=== PATIENT | male | born 1975 | race Caucasian/White ===

== ENCOUNTER 2016-10-07 06:55 | Day surgery (SDC) | payer MEDICARE ==
[2016-09-20 11:36] VITALS: BMI 22.8
[~2016-10-07 06:55] MED LIST: LACTATED RINGERS 1,000 ML IV SCH; LIDOCAINE 1% 20 ML VIAL (10MG/ML) FOR IV START INTRADERMA PRN
[2016-10-07 07:16] VITALS: TEMP 98.2
[2016-10-07] MEDS ORDERED: LACTATED RINGERS 1,000 ML IV ONE ×2 (07:23)
[2016-10-07] MEDS ORDERED: PROPOFOL 10 MG/ML 20 ML VIAL IV ONE (07:28)
[2016-10-07] MEDS ORDERED: LIDOCAINE 1% INJ 10MG/ML (20 ML MDV) ONE (07:28)
[2016-10-07] MEDS ORDERED: GLYCOPYRROLATE 0.2 MG/ML 2 ML VIAL ONE (07:28)
[2016-10-07 08:20] VITALS: RESP 16
[2016-10-07 08:35] VITALS: BP 126/82; PULSE 93
--- NOTE | 2016-10-07 09:09 | P.OP ---
Date of Procedure: 10/07/16 Preoperative Diagnosis: Rectal bleeding Anemia Postoperative Diagnosis: Same Procedure(s) Performed: EGD and colonoscopy Implants: NA Anesthesia: MAC Surgeon: Jade Nguyen Estimated Blood Loss (ml): 2 Pathology: other Condition: stable Disposition: PACU Indications for Procedure: 41 years old male presents for workup of anemia and rectal bleeding. He mentions bright red bleeding per rectum requiring pressure dressing. Informed consent obtained and patient elected to undergo the procedure including EGD and colonoscopy with possible biopsy. Operative Findings: 1. Normal EGD. GE junction at 40 cm from the incisors. 2. Patulous anal sphincter with circumferential anal mucosal prolapse.Two < 5mm polyps in the cecum and the rectum. Small hemorrhoids. No active bleeding at the time of colonoscopy. Description of Procedure: A timeout was performed to verify the correct patient and correct procedure. Patient was on continuous vitals and pulse ox monitoring throughout the procedure.He was placed in lateral decubitus position and an oral bite block was inserted. A well-lubricated Olympus upper endoscope was passed orally. The esophagus was intubated without difficulty. The vocal cords were visualised and protected at all times. The endoscope was passed beyond the pylorus into the first and second portion of the duodenum. No abnormality was noted in the duodenum mucosa. Two random biopsies were taken from the gastric antrum using cold biopsy forceps. The scope was then retroflexed.No hiatal hernia. No mass, active ulcer or bleeding stigmata noted within the gastric lumen. The GE junction is measured at 40 cm from the incisors . No evidence of reflux esophagitis. The endoscope was gradually withdrawn. No abnormality identified in the esophagus. Patient was then positioned for colonoscopy.Perianal examination did not showed circumferential anal mucosal prolapse. No active bleeding. Digital rectal examination was performed. No masses or gross blood. Very lax anal sphincter. A well-lubricated pediatric Olympus colonoscope was passed per rectally and was gradually advanced beyond the sigmoid colon, splenic flexure, transverse colon, hepatic flexure and cecum. The ileocecal valve was visualized as well as the appendiceal orifice.The colonoscope was gradually withdrawn inspecting all the mucosal surfaces. Bowel prep was good. No masses, AV malformations , no diverticulosis noted. Two <5mm polyps identified in the cecum and the upper rectum which were completely removed using cold biopsy forceps . The scope was gradually withdrawn and retroflexed in the rectum . Grade 1 internal hemorrhoids seen. Total withdrawal time was greater than 6 minutes . Patient tolerated the procedure well and was taken to post anesthesia care unit in stable condition. Final Pathologic Diagnosis A. GASTRIC ANTRUM, BIOPSY: MATURE GASTRIC MUCOSA WITHOUT SIGNIFICANT HISTOPATHOLOGIC CHANGES. B. COLON, CECUM, BIOPSY: TUBULAR ADENOMA. C. RECTUM, BIOPSY: TUBULAR ADENOMA. Recommend repeat colonoscopy in 5 years . Avoid trauma to the rectum Use proctocort suppository BIDx [address] Terry for further work up of iron deficiency anemia . May need capsule endoscopy
== END 2016-10-07 09:43 | disposition home or self-care (01) ==
LOC: ORWHC2ENDO 06:55
PROVIDERS: ATTEND Surgery
DX: D12.0 Benign neoplasm of cecum (principal); D12.8 Benign neoplasm of rectum; K62.2 Anal prolapse; K64.0 First degree hemorrhoids; D64.9 Anemia, unspecified; Z72.0 Tobacco use; F41.9 Anxiety disorder, unspecified; M19.90 Unspecified osteoarthritis, unspecified site; F32.9 Major depressive disorder, single episode, unspecified; Z86.12 Personal history of poliomyelitis; M35.9 Systemic involvement of connective tissue, unspecified; Z79.891 Long term (current) use of opiate analgesic; Z79.899 Other long term (current) drug therapy; Z88.2 Allergy status to sulfonamides
CPT/HCPCS: 88305; 45380; 43239; J2001; J2704; 99153

== ENCOUNTER 2019-01-15 12:59 | Observation (INO) | payer MEDICARE ==
[2019-01-15] MEDS ORDERED: SODIUM CHLORIDE 0.9% 1,000 ML IV STA (13:53)
[2019-01-15] MEDS ORDERED: oxyCODONE-APAP 10-325MG 1 EACH TAB PO STA (13:53)
--- NOTE | 2019-01-15 13:55 | ED ---
General Adult HPI - General Chief complaint: Recheck/Abnormal Lab/Rx Stated complaint: Low hemoglobin Time Seen by Provider: 01/15/19 13:21 Source: patient, RN notes reviewed Mode of arrival: ambulatory Limitations: no limitations - History of Present Illness Initial comments: Patient is a 43-year-old male presented to the emergency room today with a chief complaint of low hemoglobin. Patient states that he did have a follow-up this family doctor yesterday had blood work obtained. He states he was called today and told that was loaded come here to emergency room for blood transfusion. Patient states that his blood transfusions in the past after surgeries. He does admit that he has a history of hemorrhoids. Patient states that he has had some bleeding in that he's noticed it in from rectum after bowel movements. Does admit to painful bowel movements patient states this is consistent with hemorrhoids that is had in the past. Patient does admit that over the last week he has been feeling more fatigued as well. He denies any other complaints or symptoms. Patient denies any recent fever, chills, shortness of breath, chest pain, back pain, abdominal pain, nausea or vomiting, numbness or tingling, headaches or visual changes, or any other complaints. - Related Data Home Medications Medication Instructions Recorded Confirmed ALPRAZolam [Xanax] 0.25 mg PO DAILY PRN 09/20/16 01/15/19 Hizentra 50 mg SQ WE 09/20/16 01/15/19 oxyCODONE-APAP 10-325MG [Percocet 1 tab PO QID PRN 01/15/19 01/15/19 10-325 mg] Allergies Allergy/AdvReac Type Severity Reaction Status Date / Time Sulfa (Sulfonamide Allergy Rash/Hives Verified 01/15/19 13:41 Antibiotics) Review of Systems ROS Statement: Those systems with pertinent positive or pertinent negative responses have been documented in the HPI. ROS Other: All systems not noted in ROS Statement are negative. Past Medical History Past Medical History: Osteoarthritis (OA) Additional Past Medical History / Comment(s): Kaylie's disorder (IMMUNODEFICIENCY) HX OF HEMMORHOIDS, History of Any Multi-Drug Resistant Organisms: None Reported Past Surgical History: Orthopedic Surgery Additional Past Surgical History / Comment(s): left hip X3 PINS, left knee MARGA IN AND SOME REMOVED Past Anesthesia/Blood Transfusion Reactions: No Reported Reaction Past Psychological History: Anxiety Smoking Status: Current every day smoker Past Alcohol Use History: None Reported Past Drug Use History: None Reported General Exam - General Exam Comments Initial Comments: General: The patient is awake and alert, in no distress, and does not appear acutely ill. Eye: There is normal conjunctiva bilaterally. No signs of icterus. Ears, nose, mouth and throat: There are moist mucous membranes and no oral lesions. Neck: The neck is supple, there is no tenderness or JVD. Cardiovascular: Tachycardic. No murmur, rub or gallop is appreciated. Respiratory: Lungs are clear to auscultation, respirations are non-labored, breath sounds are equal. No wheezes, stridor, rales, or rhonchi. Gastrointestinal: Soft, non-distended, non-tender abdomen without masses or organomegaly noted. There is no rebound or guarding present. No CVA tenderness. Bowel sounds are unremarkable. Musculoskeletal: Normal ROM, no tenderness. Strength 5/5. Sensation intact. Pulses equal bilaterally 2+. Neurological: A&O x 3. CN II-XII intact, There are no obvious motor or sensory deficits. Coordination appears grossly intact. Speech is normal. Skin: Skin is warm and dry and no rashes or lesions are noted. Pale. Psychiatric: Cooperative, appropriate mood & affect, normal judgment. Limitations: no limitations Course Vital Signs 01/15/19 01/15/19 13:15 13:43 Temperature 98.5 F Pulse Rate 115 H 110 H Respiratory 18 18 Rate Blood Pressure 152/88 132/91 O2 Sat by Pulse 100 99 Oximetry Medical Decision Making - Medical Decision Making Patient's labs been reviewed does show hemoglobin 6.9. Patient has been ordered 1 unit of blood here in the emergency room to be started. Patient will be admitted to the hospital is aware the plan. Case was discussed with her physician Dr. Cooper with the patient. Patient has seen a GI doctor tomorrow in the past will be consulted. - Lab Data Result diagrams: 01/15/19 13:39 01/15/19 13:39 Lab Results 01/15/19 01/15/19 01/15/19 Range/Units 13:39 13:39 13:39 WBC 10.1 (3.8-10.6) k/uL RBC 4.24 L (4.30-5.90) m/uL Hgb 6.9 L* (13.0-17.5) gm/dL Hct 26.0 L (39.0-53.0) % MCV 61.3 L (80.0-100.0) fL MCH 16.3 L (25.0-35.0) pg MCHC 26.6 L (31.0-37.0) g/dL RDW 19.1 H (11.5-15.5) % Plt Count 613 H (150-450) k/uL Neutrophils % 80 % Lymphocytes % 9 % Monocytes % 6 % Eosinophils % 2 % Basophils % 1 % Neutrophils # 8.0 H (1.3-7.7) k/uL Lymphocytes # 1.0 (1.0-4.8) k/uL Monocytes # 0.6 (0-1.0) k/uL Eosinophils # 0.2 (0-0.7) k/uL Basophils # 0.1 (0-0.2) k/uL Hypochromasia Marked Poikilocytosis Slight Anisocytosis Slight Microcytosis Marked PT 10.0 (9.0-12.0) sec INR 0.9 (<1.2) APTT 24.8 (22.0-30.0) sec Sodium 140 (137-145) mmol/L Potassium 4.3 (3.5-5.1) mmol/L Chloride 107 (98-107) mmol/L Carbon Dioxide 23 (22-30) mmol/L Anion Gap 10 mmol/L BUN 10 (9-20) mg/dL Creatinine 0.35 L (0.66-1.25) mg/dL Est GFR (CKD-EPI)AfAm >90 (>60 ml/min/1.73 sqM) Est GFR (CKD-EPI)NonAf >90 (>60 ml/min/1.73 sqM) Glucose 99 (74-99) mg/dL Calcium 9.4 (8.4-10.2) mg/dL Total Bilirubin 0.3 (0.2-1.3) mg/dL AST 25 (17-59) U/L ALT 34 (21-72) U/L Alkaline Phosphatase 86 (38-126) U/L Total Protein 7.0 (6.3-8.2) g/dL Albumin 4.5 (3.5-5.0) g/dL Disposition Clinical Impression: Symptomatic anemia Disposition: ADMITTED IP TO THIS HOSP Condition: Stable Is patient prescribed a controlled substance at d/c from ED?: No Referrals: Maninder Lee MD [Primary Care Provider] - 1-2 days Time of Disposition: 15:02
[2019-01-15 14:07] LABS: INR 0.9 (<1.2); Partial Thromboplastin Time 24.8 sec (22.0-30.0)
[2019-01-15 14:08] LABS: ALT 34 U/L (21-72); AST 25 U/L (17-59); Albumin 4.5 g/dL (3.5-5.0); Alkaline Phosphatase 86 U/L (38-126); Anion Gap 10 mmol/L; Blood Urea Nitrogen 10 mg/dL (9-20); Calcium 9.4 mg/dL (8.4-10.2); Carbon Dioxide 23 mmol/L (22-30); Chloride 107 mmol/L (98-107); Glucose 99 mg/dL (74-99); Potassium 4.3 mmol/L (3.5-5.1); Sodium 140 mmol/L (137-145); Total Bilirubin 0.3 mg/dL (0.2-1.3)
[2019-01-15 14:13] LABS: Anisocytosis Slight; Basophils # (A) 0.1 k/uL (0-0.2); Basophils % (A) 1 %; Eosinophils # (A) 0.2 k/uL (0-0.7); Eosinophils % (A) 2 %; Hypochromasia Marked; Lymphocytes % (A) 9 %; MCH 16.3 pg (25.0-35.0); MCHC 26.6 g/dL (31.0-37.0); MCV 61.3 fL (80.0-100.0); Microcytosis Marked; Monocytes # (A) 0.6 k/uL (0-1.0); Monocytes % (A) 6 %; Neutrophils % (A) 80 %; Platelet Count 613 k/uL (150-450); Poikilocytosis Slight; RBC 4.24 m/uL (4.30-5.90); RDW 19.1 % (11.5-15.5); WBC 10.1 k/uL (3.8-10.6)
[2019-01-15 14:16] LABS: HGB 6.9 gm/dL (13.0-17.5)
[2019-01-15] MEDS ORDERED: SODIUM CHLORIDE 0.9% 1,000 ML IV ONE (15:02)
[2019-01-15] MEDS ORDERED: ONDANSETRON 4 MG/2 ML VIAL IVP PRN (15:02)
[2019-01-15] MEDS ORDERED: NALOXONE 0.4 MG/ML 1 ML VIAL IV PRN (15:02)
[2019-01-15] MEDS ORDERED: PANTOPRAZOLE 40 MG/10 ML VIAL IVP STA (15:06)
[2019-01-15 17:40] VITALS: BMI 23.4
[2019-01-15] MEDS ORDERED: ALPRAZolam 0.25 MG TAB PO PRN (18:01)
[2019-01-15] MEDS: oxyCODONE-APAP 10-325MG 1 EACH TAB PO PRN (20:31)
[2019-01-15 22:40] LABS: Anisocytosis Slight; HCT 25.9 % (39.0-53.0); HGB 7.2 gm/dL (13.0-17.5); Hypochromasia Marked; MCH 18.4 pg (25.0-35.0); MCHC 27.9 g/dL (31.0-37.0); MCV 66.1 fL (80.0-100.0); Microcytosis Marked; Platelet Count 467 k/uL (150-450); Poikilocytosis Marked; RBC 3.92 m/uL (4.30-5.90); RDW 19.3 % (11.5-15.5)
[2019-01-16 01:16] VITALS: PULSE 91
[2019-01-16] MEDS: oxyCODONE-APAP 10-325MG 1 EACH TAB PO PRN ×2 (06:47→13:21)
[2019-01-16 07:57] LABS: Anisocytosis Slight; Basophils # (A) 0.1 k/uL (0-0.2); Basophils % (A) 0 %; Eosinophils # (A) 0.2 k/uL (0-0.7); Eosinophils % (A) 2 %; HCT 27.6 % (39.0-53.0); HGB 7.3 gm/dL (13.0-17.5); Hypochromasia Marked; Lymphocytes # (A) 0.8 k/uL (1.0-4.8); Lymphocytes % (A) 8 %; MCH 17.6 pg (25.0-35.0); MCHC 26.5 g/dL (31.0-37.0); MCV 66.6 fL (80.0-100.0); Mean Platelet Volume 6.8; Microcytosis Marked; Monocytes # (A) 0.6 k/uL (0-1.0); Monocytes % (A) 5 %; Neutrophils # (A) 8.7 k/uL (1.3-7.7); Neutrophils % (A) 83 %; Platelet Count 454 k/uL (150-450); Poikilocytosis Marked; RBC 4.14 m/uL (4.30-5.90); RDW 19.4 % (11.5-15.5); WBC 10.5 k/uL (3.8-10.6)
[2019-01-16 07:59] LABS: ALT 38 U/L (21-72); AST 19 U/L (17-59); Albumin 3.9 g/dL (3.5-5.0); Alkaline Phosphatase 84 U/L (38-126); Anion Gap 7 mmol/L; Blood Urea Nitrogen 9 mg/dL (9-20); Calcium 9.2 mg/dL (8.4-10.2); Carbon Dioxide 27 mmol/L (22-30); Chloride 108 mmol/L (98-107); Glucose 92 mg/dL (74-99); Potassium 4.5 mmol/L (3.5-5.1); Sodium 142 mmol/L (137-145); Total Bilirubin 0.3 mg/dL (0.2-1.3); Total Protein 6.1 g/dL (6.3-8.2)
[2019-01-16] MEDS ORDERED: IMMUNE GLOBULIN SQ SCH (09:00)
[2019-01-16] MEDS ORDERED: PANTOPRAZOLE 40 MG/10 ML VIAL IVP SCH (09:00)
[2019-01-16 13:22] VITALS: BP 141/73; RESP 16; TEMP 98.8
--- NOTE | 2019-01-16 14:39 | P.CONS ---
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 Collins, polio as a young child after receiving attenuated vaccine in 1974, admitted to hospitals in regards to outpatient chemistries indicating anemia. Patient states that he has felt more weak lately tired and short of breath. Admission hemoglobin 6.9. MCV 61. Received 2 units of blood. Presently hemoglobin is 7.3. Platelet 454-613. Marked hypochromia. INR 0.9. BUN 10. Creatinine 0.3. IgG 585. LFTs within normal limits. Denies overt hematemesis hematochezia or melena. Patient has a history of known hemorrhoid which she states bleeds intermittently only on tissue not in the stool. He has had more bleeding with his hemorrhoid last few weeks than his baseline. [id number] hemorrhoidal preparations do not help. No history of known anemia. Patient states his CBC is checked on yearly basis with his specialists was never told he was anemic. EGD colonoscopy for evaluation of anemia bright blood per rectum in September 2016 reported normal EGD. Patulous anal sphincter a circumferential anal mucosal prolapse small hemorrhoids. Polypectomy cecum and rectum 1. Pathology tubular adenoma. Denies fever chills weight loss. Denies abdominal pain. No recent blood transfusions. No iron supplementation. No aspirin or NSAIDs. No alcohol. Regular diet. Review of Systems Constitutional: Denies fever, chills, sweats, weight gain, or loss. HEENT: Negative for migraines, blurred vision or loss, earaches, drainage, tinnitus, oral mucosal lesions, dysphagia, or odynophagia. Cardiac: Negative for chest pain, arrhythmias, or palpitation. Respiratory: Negative for shortness of breath, hemoptysis, cough, or sputum production. Gastrointestinal: See HPI for pertinent findings. Genitourinary: Negative for hematuria, urgency, frequency, polyuria, dysuria, or penile discharge. Musculoskeletal: Bilateral lower extremity paralysis from childhood polio. Negative for muscle aches, swelling, arthritis, and arthralgias. Neurologic: Negative for stroke or TIA. Endocrine: Negative for thyroid problems. Skin: Negative for rash or itching. Psychiatric: Negative history for depression and anxiety Past Medical History Past Medical History: Osteoarthritis (OA) Additional Past Medical History / Comment(s): Kaylie's disorder (IMMUNODEFI CIENCY) HX OF HEMMORHOIDS, History of Any Multi-Drug Resistant Organisms: None Reported Past Surgical History: Orthopedic Surgery Additional Past Surgical History / Comment(s): left hip X3 PINS, left knee MARGA IN AND SOME REMOVED Past Anesthesia/Blood Transfusion Reactions: No Reported Reaction Past Psychological History: Anxiety Smoking Status: Current every day smoker Past Alcohol Use History: None Reported Additional Past Alcohol Use History / Comment(s): CHEWS ONE TIN OF TOBACCO DAILY, FOR 20 YRS, Past Drug Use History: None Reported Additional Drug Use History / Comment(s): INSTRUCTED TO HOLD FOR 24 HRS PRIOR TO PROCEDURE Medications and Allergies Home Medications Medication Instructions Recorded Confirmed Type ALPRAZolam [Xanax] 0.25 mg PO DAILY PRN 09/20/16 01/15/19 History Hizentra 50 mg SQ WE 09/20/16 01/15/19 History oxyCODONE-APAP 10-325MG [Percocet 1 tab PO QID PRN 01/15/19 01/15/19 History 10-325 mg] Allergies Allergy/AdvReac Type Severity Reaction Status Date / Time Sulfa (Sulfonamide Allergy Rash/Hives Verified 01/15/19 13:41 Antibiotics) Physical Exam Vitals: Vital Signs Temp Pulse Pulse Resp BP BP Pulse Ox 01/16/19 01:16 97.6 F 91 18 134/73 98 01/16/19 00:00 16 01/15/19 20:25 16 01/15/19 18:29 97.5 F L 16 129/81 100 01/15/19 17:40 16 01/15/19 17:24 98.2 F 92 16 130/77 100 01/15/19 17:00 97.0 F L 82 18 128/81 01/15/19 16:30 98.2 F 82 18 125/72 98 01/15/19 16:20 98.2 F 84 18 131/81 01/15/19 16:15 98.1 F 84 18 128/84 100 01/15/19 16:01 97.9 F 82 18 124/79 100 01/15/19 13:43 110 H 18 132/91 99 01/15/19 13:15 98.5 F 115 H 18 152/88 100 Intake and Output 01/15/19 01/16/19 01/16/19 22:59 06:59 14:59 Intake Total 310 1120 450 Balance 310 1120 450 Intake: Intake, IV Titration 800 Amount Sodium Chloride 0.9% 1, 800 000 ml @ 100 mls/hr IV . Q10H ONE Rx#:[id number] Oral 320 450 Blood Product 310 Rc As-1 Unit 310 [id number] Other: # Voids 2 General appearance: The patient is alert, oriented, in no acute distress. HET: Head is normocephalic and atraumatic. Pupils are equal and reactive. Oropharynx is clear without lesions. Neck: Supple without lymphadenopathy. Trachea midline. Heart: S1 S2. Regular rate and rhythm. Lungs: No crackles or wheezes are heard. Abdomen: Soft, nontender, nondistended with bowel sounds. No peritoneal signs. No palpable organomegaly or masses. Extremities: Normal skin color and turgor. No cyanosis, rash, ulceration, clubbing, or edema. Radial and pedal pulses are 2/4 bilaterally. Neurological: Bilateral lower extremity paralysis from polio as a child. Results CBC & Chem 7: 01/16/19 07:15 01/16/19 07:15 Labs: Abnormal Lab Results - Last 24 Hours (Table) 01/15/19 01/15/19 01/15/19 Range/Units 13:39 13:39 13:39 RBC 4.24 L (4.30-5.90) m/uL Hgb 6.9 L* (13.0-17.5) gm/dL Hct 26.0 L (39.0-53.0) % MCV 61.3 L (80.0-100.0) fL MCH 16.3 L (25.0-35.0) pg MCHC 26.6 L (31.0-37.0) g/dL RDW 19.1 H (11.5-15.5) % Plt Count 613 H (150-450) k/uL Neutrophils # 8.0 H (1.3-7.7) k/uL Lymphocytes # (1.0-4.8) k/uL Chloride (98-107) mmol/L Creatinine 0.35 L (0.66-1.25) mg/dL Total Protein (6.3-8.2) g/dL Crossmatch See Detail 01/15/19 01/16/19 01/16/19 Range/Units 22:19 07:15 07:15 RBC 3.92 L 4.14 L (4.30-5.90) m/uL Hgb 7.2 L 7.3 L (13.0-17.5) gm/dL Hct 25.9 L 27.6 L (39.0-53.0) % MCV 66.1 L 66.6 L (80.0-100.0) fL MCH 18.4 L 17.6 L (25.0-35.0) pg MCHC 27.9 L 26.5 L (31.0-37.0) g/dL RDW 19.3 H 19.4 H (11.5-15.5) % Plt Count 467 H 454 H (150-450) k/uL Neutrophils # 8.7 H (1.3-7.7) k/uL Lymphocytes # 0.8 L (1.0-4.8) k/uL Chloride 108 H (98-107) mmol/L Creatinine 0.42 L (0.66-1.25) mg/dL Total Protein 6.1 L (6.3-8.2) g/dL Crossmatch Assessment and Plan (1) Symptomatic anemia Narrative/Plan: 43-year-old gentleman with a history of Kaylie Agammaglobulinemia and polio presents with symptomatic microcytic iron deficient anemia with a history of known bleeding hemorrhoids. EGD colonoscopy 05/14/17 no evidence of peptic ulcer disease polypectomy 2 biopsies consistent with tubular adenoma with findings of hemorrhoids. Occult GI blood blood loss cannot be entirely excluded. Presently no active GI bleeding or abdominal pain. Hemoglobin stable after blood transfusion 7.3. Current Visit: Yes Status: Acute Code(s): D64.9 - ANEMIA, UNSPECIFIED SNOMED Code(s): 102885560 Plan: 1. Dr. Pfeiffer recommended repeat EGD colonoscopy possible capsule endoscopy h owever patient would like to pursue this workup on an outpatient basis. Agreeable for discharge this was communicated with the attending Dr. Cooper. We'll follow up in the next 1-2 weeks for outpatient endoscopy. CBC monitoring in the outpatient setting. Recommend hematology and surgical consult this can be pursued as an outpatient per attending discretion. Thank you for this kind referral and the opportunity to participate in the care of your patient. This consultation was discussed with Dr. Pfeiffer. The impression and plan of care have been directed as dictated.
--- NOTE | 2019-01-16 18:05 | DS ---
DISCHARGE SUMMARY HISTORY PHYSICAL AND DISCHARGE SUMMARY: DATE OF ADMISSION: 01/15/2019 DATE OF DISCHARGE: 01/16/2019 DATE OF SERVICE: 01/16/2019 PRESENTING COMPLAINT: Bleeding per rectum. HISTORY OF PRESENTING COMPLAINT: This is a very pleasant 43-year-old patient who follows with Dr. Lee out of [place]. 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 The patient had a very young age did get a what appears to be live polio vaccine and patient resulted in having polio affecting his right side, affecting his right arm and right leg. The patient does wear a brace for the right leg and also has a brace on the right arm. The patient presented after he was called by his family doctor's office that his hemoglobin was down. Hemoglobin that was repeated here was 6.9. The patient has been having bright red blood per the rectum on and off for a long time, more so recently. The patient felt a little bit tired when he came in. Patient was ordered blood and given a unit of blood. The patient repeat hemoglobin did come up to 7.3. The patient does follow with Dr. Collins out [facility] for Kaylie's. The patient has chronic weakness in the right arm and right leg from the polio. REVIEW OF SYSTEMS: CONSTITUTIONAL: Tired. HEENT: None. RESPIRATORY none. CARDIOVASCULAR: None. GASTROINTESTINAL: As above. No abdominal pain. GENITOURINARY: None. MUSCULOSKELETAL: Weakness on the right side. DERMATOLOGICAL, HEMATOLOGIC, LYMPHATIC: none. PSYCHIATRY none. NEUROLOGICAL: Weakness on the right side. PAST MEDICAL HISTORY: Kaylie's immunogammaglobulinemia, polio affecting the right side, hemorrhoids. PAST SURGICAL HISTORY: Left hip 3 pins, left knee zander. PSYCH HISTORY: Some anxiety. SOCIAL HISTORY: The patient chews a tin of tobacco daily. Lives by himself. No other recreational drugs. FAMILY HISTORY: Reviewed. The patient's brother of the same immunoglobulin deficiency HOME MEDICATIONS: 1. Percocet 10 1 tablet q.i.d. p.r.n. 2. Hizentra 50 mg subcu weekly. 3. Xanax 0.25 p.o. daily p.r.n. ALLERGIES: SULFUR. PHYSICAL EXAMINATION: VITAL SIGNS: Vital signs on presentation: Temperature 98.5, pulse 115, respiratory 18, blood pressure 132/91, pulse ox 99% on room air. GENERAL APPEARANCE: Average built, sitting up, comfortable. EYES: Pupils equal. Conjunctivae pale. HEENT: External appearance of nose and ears normal. Oral cavity normal. NECK: JVD not raised. Mass not palpable. RESPIRATORY: Effort normal. Lungs are clear. CARDIOVASCULAR: First and second sounds normal. No edema. ABDOMEN: Soft, nontender. Liver and spleen not palpable. PSYCHIATRY: Alert, oriented x3. Mood and affect normal. MUSCULOSKELETAL: Right arm is short and contracted. Right leg is short and contracted. INVESTIGATIONS: White count 10.1, hemoglobin 6.9, platelets 613. Repeat this morning 7.3, potassium 4.3. Creatinine normal. ASSESSMENT: 1. Acute blood loss anemia from gastrointestinal blood loss, felt to be most likely internal hemorrhoidal but need to rule out other cause. 2. Reactive thrombocytopenia. 3. Microcytic anemia from above. 4. Chronic nicotine dependence, patient does chew tobacco. 5. Right-sided weakness from prior polio. 6. Kaylie's immunoglobulinemia. 7. Chronic pain for which patient takes [place]. PLAN: Patient was seen by Dr. Pfeiffer's team earlier today and the patient had already eaten. He does not want to wait for EGD and colonoscopy as that will take another 24 hours. The patient is hemodynamically stable. The patient wishes to come back and get the same done. Then patient will need a surgical opinion probably for banding of hemorrhoids that have been bleeding quite a bit. This was discussed with the patient. The patient, otherwise, medically stable to go home. DISCHARGE MEDICATIONS: Same as above. FOLLOWUP: Follow up with Dr. Lee in a week. Follow up with Dr. Panfilo Pfeiffer in 1 week. Follow up with Dr. West Jeffery in 1 week. CBC in 1 week. This is both a history physical and discharge summary. Copy to Dr. Javi Lee [place]. MMODL / IJN: [id number] /
== END 2019-01-16 15:10 | disposition home or self-care (01) ==
LOC: EC 12:59 → 4SSUR 14:19
PROVIDERS: ADMIT Hospitalist; ATTEND Hospitalist
DX: D62 Acute posthemorrhagic anemia (principal); K92.2 Gastrointestinal hemorrhage, unspecified; D69.6 Thrombocytopenia, unspecified; D50.9 Iron deficiency anemia, unspecified; K64.9 Unspecified hemorrhoids; B91 Sequelae of poliomyelitis; R53.1 Weakness; G89.29 Other chronic pain; D80.0 Hereditary hypogammaglobulinemia; M19.90 Unspecified osteoarthritis, unspecified site; F41.9 Anxiety disorder, unspecified; F17.220 Nicotine dependence, chewing tobacco, uncomplicated; Z79.891 Long term (current) use of opiate analgesic; Z79.899 Other long term (current) drug therapy; Z88.2 Allergy status to sulfonamides; Z86.010 Personal history of colon polyps; Z82.49 Family history of ischemic heart disease and other diseases of the circulatory system
CPT/HCPCS: 96376; 96361; 96374; 99284; 36415; 86900; 86901; 80053 ×2; 85025 ×2; 85027; 85610; 85730; 86850; 86920; G0378 ×2; P9016; C9113 ×2

== ENCOUNTER 2024-05-06 18:17 | Emergency (ER) | payer MEDICARE | END 2024-05-07 02:00 | disposition home or self-care (01) | LOC: EC 18:17 | CPT/HCPCS: 99283 ==

== ENCOUNTER 2024-05-21 09:54 | Inpatient (IN) | payer MEDICARE ==
--- NOTE | 2024-05-21 11:22 | ED ---
Psych HPI - General Chief Complaint: Psychiatric Symptoms Stated Complaint: mental health Time Seen by Provider: 05/21/24 10:07 Source: patient, RN notes reviewed Mode of arrival: ambulatory Limitations: no limitations - History of Present Illness Initial Comments: 49-year-old male presents emergency department chief complaint of needing psychiatric evaluation. Patient states he believes he is having issues with his medications he feels slightly manic. Patient states he is on Cymbalta, Xanax he states he is unable to use his marijuana. Patient denies being suicidal homicidal. - Related Data Home Medications Medication Instructions Recorded Confirmed ALPRAZolam [Xanax] 0.25 mg PO DAILY PRN 09/20/16 01/15/19 Hizentra 50 mg SQ WE 09/20/16 01/15/19 oxyCODONE-APAP 10-325MG [Percocet 1 tab PO QID PRN 01/15/19 01/15/19 10-325 mg] Allergies Allergy/AdvReac Type Severity Reaction Status Date / Time Sulfa (Sulfonamide Allergy Rash/Hives Verified 05/21/24 10:05 Antibiotics) Review of Systems ROS Statement: Those systems with pertinent positive or pertinent negative responses have been documented in the HPI. ROS Other: All systems not noted in ROS Statement are negative. Past Medical History Past Medical History: Osteoarthritis (OA) Additional Past Medical History / Comment(s): Kaylie's disorder (IMMUNODEFICIENCY) HX OF HEMMORHOIDS, History of Any Multi-Drug Resistant Organisms: None Reported Past Surgical History: Orthopedic Surgery Additional Past Surgical History / Comment(s): left hip X3 PINS, left knee MARGA IN AND SOME REMOVED Past Anesthesia/Blood Transfusion Reactions: No Reported Reaction Past Psychological History: Anxiety Past Alcohol Use History: None Reported Past Drug Use History: None Reported General Exam Limitations: no limitations General appearance: alert, in no apparent distress Head exam: Present: atraumatic, normocephalic, normal inspection ENT exam: Present: normal exam, mucous membranes moist Neck exam: Present: normal inspection. Absent: tenderness, meningismus, lym phadenopathy Respiratory exam: Present: normal lung sounds bilaterally. Absent: respiratory distress, wheezes, rales, rhonchi, stridor Cardiovascular Exam: Present: regular rate, normal rhythm, normal heart sounds. Absent: systolic murmur, diastolic murmur, rubs, gallop, clicks GI/Abdominal exam: Present: soft, normal bowel sounds. Absent: distended, tenderness, guarding, rebound, rigid Neurological exam: Present: alert, oriented X3 Psychiatric exam: Present: anxious Course Vital Signs 05/21/24 10:02 Temperature 98.1 F Pulse Rate 94 Respiratory 18 Rate Blood Pressure 159/106 O2 Sat by Pulse 98 Oximetry Medical Decision Making - Medical Decision Making Was pt. sent in by a medical professional or institution (, PA, LIFE SCIENTIST, urgent care, hospital, or [place] [facility] [place] facility...) When possible be specific @ -No Did you speak to anyone other than the patient for history (EMS, parent, family, police, friend...)? What history was obtained from this source @ -No Did you review nursing and triage notes (agree or disagree)? Why? @ -I reviewed and agree with nursing and triage notes Were old charts reviewed (outside hosp., previous admission, EMS record, old EKG, old radiological studies, urgent care reports/EKG's, [place] [facility] facility records)? Report findings @ -No old charts were reviewed Differential Diagnosis (chest pain, altered mental status, abdominal pain women, abdominal pain men, vaginal bleeding, weakness, fever, dyspnea, syncope, headache, dizziness, GI bleed, back pain, seizure, CVA, palpatations, mental health, musculoskeletal)? @ -Differential Mental Health Depression, anxiety, bipolar, psychosis, schizophrenia, borderline personality, situational depression, adjustment disorder, behavioral disorder, brain tumor, malingering, substance abuse, encephalopathy, medication reaction, dementia, hypothyroidism, degenerative neurologic disorder, lupus.... This is not meant to be all-inclusive list EKG interpreted by me (3pts min.). @ -None X-rays interpreted by me (1pt min.). @ -None done CT interpreted by me (1pt min.). @ -None done U/S interpreted by me (1pt. min.). @ -None done What testing was considered but not performed or refused? (CT, X-rays, U/S, labs)? Why? @ -None What meds were considered but not given or refused? Why? @ -None Did you discuss the management of the patient with other professionals (professionals i.e. , PA, LIFE SCIENTIST, lab, RT, psych nurse, medical social worker, section hand helper, teacher, sailing officer, case liner)? Give summary @ -[EPS evaluated the patient discussed case with psychiatrist recommends inpatient treatment Was smoking cessation discussed for >3mins.? @ -No Was critical care preformed (if so, how long)? @ -No Were there social determinants of health that impacted care today? How? (Homelessness, low income, unemployed, alcoholism, drug addiction, transportation, low edu. Level, literacy, decrease access to med. care, [facility], rehab)? @ -No Was there de-escalation of care discussed even if they declined (Discuss DNR or withdrawal of care, Hospice)? DNR status @ -No What co-morbidities impacted this encounter? (DM, HTN, Smoking, COPD, CAD, Cancer, CVA, ARF, Chemo, Hep., AIDS, mental health diagnosis, sleep apnea, morbid obesity)? @ -None Was patient admitted / discharged? Hospital course, mention meds given and route, prescriptions, significant lab abnormalities, going to OR and other pertinent info. @ -Admitted to 3 W. Undiagnosed new problem with uncertain prognosis? @ -No Drug Therapy requiring intensive monitoring for toxicity (Heparin, Nitro, Insulin, Cardizem)? @ -No Were any procedures done? @ -No Diagnosis/symptom? @ -Acute psychosis Acute, or Chronic, or Acute on Chronic? @ -Acute Uncomplicated (without systemic symptoms) or Complicated (systemic symptoms)? @ -Complicated Side effects of treatment? @ -No Exacerbation, Progression, or Severe Exacerbation? @ -No Poses a threat to life or bodily function? How? (Chest pain, USA, SD, pneumonia, PE, COPD, DKA, ARF, appy, cholecystitis, CVA, Diverticulitis, Homicidal, Suicidal, threat to staff... and all critical care pts) @ -No Disposition Clinical Impression: Acute psychosis Disposition: TRANSFER TO PSYCH HOSP/UNIT Condition: Fair Referrals: Lacey Nuñez MD [Primary Care Provider] - 1-2 days Time of Disposition: 15:49
[2024-05-21 18:40] LABS: Amphetamine Screen,Urine Not Detected (NotDetected); Barbiturate Screen,Urine Not Detected (NotDetected); Benzodiazepines Screen,Urine Not Detected (NotDetected); Cocaine Screen,Urine Not Detected (NotDetected); Methadone Screen, Urine Not Detected (NotDetected); Opiate Screen,Urine Detected (NotDetected); Oxycodone Screen, Urine Detected (NotDetected); Phencyclidine Screen,Urine Not Detected (NotDetected); Tricyclic Antidepressant,Urine Not Detected (NotDetected); Urn Cannabinoid Scrn Detected (NotDetected)
[2024-05-21] MEDS: NICOTINE 21MG/24HR PATCH TRANSDERM STA (19:22)
[2024-05-21 20:31] LABS: Basophils % (A) 1 %; Eosinophils # (A) 0.4 k/uL (0-0.7); Eosinophils % (A) 5 %; HCT 42.7 % (39.0-53.0); HGB 13.5 gm/dL (13.0-17.5); Lymphocytes # (A) 1.1 k/uL (1.0-4.8); Lymphocytes % (A) 14 %; MCH 30.5 pg (25.0-35.0); MCHC 31.6 g/dL (31.0-37.0); MCV 96.5 fL (80.0-100.0); Mean Platelet Volume 7.6; Monocytes # (A) 0.6 k/uL (0-1.0); Monocytes % (A) 7 %; Neutrophils # (A) 5.9 k/uL (1.3-7.7); Neutrophils % (A) 73 %; Platelet Count 355 k/uL (150-450); RBC 4.43 m/uL (4.30-5.90); RDW 14.9 % (11.5-15.5); WBC 8.1 k/uL (3.8-10.6)
[2024-05-21 20:43] LABS: ALT 23 U/L (4-49); AST 35 U/L (17-59); African American GFR (CKD) >90 (>60 ml/min/1.73 sqM); Albumin 3.9 g/dL (3.5-5.0); Alkaline Phosphatase 95 U/L (38-126); Anion Gap 4 mmol/L; Blood Urea Nitrogen 9 mg/dL (9-20); Calcium 9.2 mg/dL (8.4-10.2); Carbon Dioxide 32 mmol/L (22-30); Chloride 103 mmol/L (98-107); Glucose 100 mg/dL (74-99); Non-African American GFR(CKD) >90 (>60 ml/min/1.73 sqM); Potassium 3.8 mmol/L (3.5-5.1); Sodium 139 mmol/L (137-145); Total Bilirubin 0.4 mg/dL (0.2-1.3); Total Protein 6.5 g/dL (6.3-8.2)
[2024-05-21] MEDS ORDERED: HALOPERIDOL LACTATE 5 MG/ML 1 ML VIAL IM PRN (20:56)
[2024-05-21] MEDS ORDERED: LORazepam 2 MG/ML INJ IM PRN (20:56)
[2024-05-21] MEDS ORDERED: ACETAMINOPHEN TAB 325 MG TAB PO PRN (20:56)
[2024-05-21 21:42] LABS: Appearance,Urine Clear (Clear); Bilirubin,Urine Negative (Negative); Blood,Urine Negative (Negative); Color,Urine Colorless; Glucose,Urine (UA) Negative (Negative); Ketones,Urine Negative (Negative); Leukocyte Esterase,Urine Negative (Negative); Nitrite,Urine Negative (Negative); Protein,Urine Negative (Negative); Specific Gravity,Urine 1.006 (1.001-1.035); Urobilinogen,Urine <2.0 mg/dL (<2.0)
[2024-05-21] MEDS: PREGABALIN 75 MG CAP PO SCH (22:43)
[2024-05-21] MEDS: HYDROcodone/APAP 10-325MG 1 EACH TAB PO PRN (22:48)
[2024-05-21] MEDS: atenoloL 50 MG TAB PO SCH (23:02)
[2024-05-21] MEDS: LORazepam 1 MG TAB PO PRN (23:18)
[2024-05-22] MEDS ORDERED: MAG HYDROX/AL HYDROX/SIMETH 355 ML BOTTLE PO PRN
[2024-05-22] MEDS ORDERED: HYDROcodone/APAP 10-325MG 1 EACH TAB PO PRN
[2024-05-22] MEDS: NICOTINE 14MG/24HR PATCH TRANSDERM SCH (03:05)
[2024-05-22] MEDS ORDERED: MAGNESIUM HYDROXIDE 2,400 MG/30 ML CUP PO PRN (09:00)
[2024-05-22] MEDS: atenoloL 50 MG TAB PO SCH (09:36)
[2024-05-22] MEDS: DULoxetine HCL 60 MG CAPSULE.DR PO SCH (09:36)
[2024-05-22 09:38] LABS: Chol/HDL Ratio 2.71 Ratio
[2024-05-22] MEDS: haloperidoL 5 MG TAB PO PRN (10:35)
[2024-05-22] MEDS: SYMBICORT 160-4.5 MCG INHALER (MHU) INHALATION SCH (10:38)
[2024-05-22] MEDS: SYMBICORT 80-4.5 MCG INHALER INHALATION SCH (10:51)
[2024-05-22 11:57] VITALS: BMI 18.7
[2024-05-22] MEDS: risperiDONE 0.5 MG TAB PO SCH (21:30)
[2024-05-22] MEDS ORDERED: SYMBICORT 80-4.5 MCG INHALER INHALATION ONE (23:00)
[2024-05-22] MEDS ORDERED: LORazepam 1 MG TAB ONE (23:34)
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
[2024-05-23] MEDS: ALBUTEROL INHALER 60 PUFF/8 GM INHALER (MHU) INHALATION PRN (09:15)
--- NOTE | 2024-05-23 14:32 | P.HP ---
Psychiatric H&P - . H&P Date: 05/22/24 History & Physical: Allergies Allergy/AdvReac Type Severity Reaction Status Date / Time Sulfa (Sulfonamide Allergy Rash/Hives Verified 05/21/24 17:04 Antibiotics) Vital Signs Temp 98.0 F 05/21/24 22:42 Pulse 130 H 05/23/24 05:44 Resp 18 05/21/24 22:42 BP 142/94 05/23/24 05:44 Pulse Ox 98 05/21/24 22:42 FiO2 Intake & Output 05/22/24 05/23/24 05/23/24 18:59 06:59 18:59 Weight 54.176 kg Laboratory Last Values WBC 8.1 k/uL (3.8-10.6) 05/21/24 20:09 RBC 4.43 m/uL (4.30-5.90) 05/21/24 20:09 Hgb 13.5 gm/dL (13.0-17.5) 05/21/24 20:09 Hct 42.7 % (39.0-53.0) 05/21/24 20:09 MCV 96.5 fL (80.0-100.0) 05/21/24 20:09 MCH 30.5 pg (25.0-35.0) 05/21/24 20:09 MCHC 31.6 g/dL (31.0-37.0) 05/21/24 20:09 RDW 14.9 % (11.5-15.5) 05/21/24 20:09 Plt Count 355 k/uL (150-450) 05/21/24 20:09 MPV 7.6 05/21/24 20:09 Neutrophils % 73 % 05/21/24 20:09 Lymphocytes % 14 % 05/21/24 20:09 Monocytes % 7 % 05/21/24 20:09 Eosinophils % 5 % 05/21/24 20:09 Basophils % 1 % 05/21/24 20:09 Neutrophils # 5.9 k/uL (1.3-7.7) 05/21/24 20:09 Lymphocytes # 1.1 k/uL (1.0-4.8) 05/21/24 20:09 Monocytes # 0.6 k/uL (0-1.0) 05/21/24 20:09 Eosinophils # 0.4 k/uL (0-0.7) 05/21/24 20:09 Basophils # 0.0 k/uL (0-0.2) 05/21/24 20:09 Sodium 139 mmol/L (137-145) 05/21/24 20:09 Potassium 3.8 mmol/L (3.5-5.1) 05/21/24 20:09 Chloride 103 mmol/L (98-107) 05/21/24 20:09 Carbon Dioxide 32 mmol/L (22-30) H 05/21/24 20:09 Anion Gap 4 mmol/L 05/21/24 20:09 BUN 9 mg/dL (9-20) 05/21/24 20:09 Creatinine 0.73 mg/dL (0.66-1.25) 05/21/24 20:09 Est GFR (CKD-EPI)AfAm >90 (>60 ml/min/1.73 sqM) 05/21/24 20:09 Est GFR (CKD-EPI)NonAf >90 (>60 ml/min/1.73 sqM) 05/21/24 20:09 Glucose 100 mg/dL (74-99) H 05/21/24 20:[address] Glu mg/dL 117 mg/dL 05/21/24 20:09 Hemoglobin A1c 5.7 % (<=6.0) 05/21/24 20:09 Calcium 9.2 mg/dL (8.4-10.2) 05/21/24 20:09 Total Bilirubin 0.4 mg/dL (0.2-1.3) 05/21/24 20:09 AST 35 U/L (17-59) 05/21/24 20:09 ALT 23 U/L (4-49) 05/21/24 20:09 Alkaline Phosphatase 95 U/L (38-126) 05/21/24 20:09 Total Protein 6.5 g/dL (6.3-8.2) 05/21/24 20:09 Albumin 3.9 g/dL (3.5-5.0) 05/21/24 20:09 Triglycerides 103.00 mg/dL (0.00-149.00) 05/21/24 20:09 Cholesterol 169.00 mg/dL (0.00-200.00) 05/21/24 20:09 LDL Cholesterol, Calc 86.0 mg/dL (0.0-131.0) 05/21/24 20:09 VLDL Cholesterol, Calc 20.60 mg/dL (5.00-40.00) 05/21/24 20:09 HDL Cholesterol 62.40 mg/dL (40.00-60.00) H 05/21/24 20:09 Cholesterol/HDL Ratio 2.71 Ratio 05/21/24 20:09 TSH 0.628 UIU/ML (0.350-5.500) 05/21/24 20:09 Urine Color Colorless 05/21/24 20:56 Urine Appearance Clear (Clear) 05/21/24 20:56 Urine pH 6.0 (5.0-8.0) 05/21/24 20:56 Ur Specific [place] 1.006 (1.001-1.035) 05/21/24 20:56 Urine Protein Negative (Negative) 05/21/24 20:56 Urine Glucose (UA) Negative (Negative) 05/21/24 20:56 Urine Ketones Negative (Negative) 05/21/24 20:56 Urine Blood Negative (Negative) 05/21/24 20:56 Urine Nitrite Negative (Negative) 05/21/24 20:56 Urine Bilirubin Negative (Negative) 05/21/24 20:56 Urine Urobilinogen <2.0 mg/dL (<2.0) 05/21/24 20:56 Ur Leukocyte Esterase Negative (Negative) 05/21/24 20:56 Urine Opiates Screen Detected (NotDetected) H 05/21/24 16:19 Ur Oxycodone Screen Detected (NotDetected) H 05/21/24 16:19 Urine Methadone Screen Not Detected (NotDetected) 05/21/24 16:19 Ur Barbiturates Screen Not Detected (NotDetected) 05/21/24 16:19 U Tricyclic Antidepress Not Detected (NotDetected) 05/21/24 16:19 Ur Phencyclidine Scrn Not Detected (NotDetected) 05/21/24 16:19 Ur Amphetamines Screen Not Detected (NotDetected) 05/21/24 16:19 U Methamphetamines Scrn Not Detected (NotDetected) 05/21/24 16:19 U Benzodiazepines Scrn Not Detected (NotDetected) 05/21/24 16:19 Urine Cocaine Screen Not Detected (NotDetected) 05/21/24 16:19 U Marijuana (THC) Screen Detected (NotDetected) H 05/21/24 16:19 SARS-CoV-2 (PCR) Not Detected (Not Detectd) 05/21/24 17:00 05/22/24 14:31 Psychiatric Evaluation Identifying Data: Mr. Nguyen is 49 years old, single, wm, who lives in [place], [place] in a house by himself. Chief Complaint: Lot of stress for 6 weeks. History of Psychiatric Illness- The patient noted that he came to the hospital because his family and friends asked him. The patient noted he was noted to be aggressive by expressing anger, irritability, snapping, fluctuating sleep, paranoia, hypervigilant, feared being shot, checking vehicle for rust in the bottom because that means he is being followed, neglecting personal care. He denied being worthless, hopeless suicidal or homicidal. He also believed that [place] people were going to hurt his family. The patient noted that he has never had this kind of experience in the past. The patient has never been hospitalized in the past for psychiatric reason. He has no h/o SI or HI in the past. The patient has last contact with a psychiatrist in 2022. He is taking Cymbalta and Xanax prescribed to him by his PCP. He has been compliant with his medications. Past Psychiatric History: The patient has been under psychiatric treatment since age 7. He has been under psychiatric treatment off and on since then. Past Medication History: The patient does not know. Leading questions: The patient denied Depression and Anxiety. Denied SI or HI. Admitted to paranoia. Denied hearing voices or seeing things. Drugs and alcohol history: The patient drank heavy between the ages of 20 to 35. He used cocaine between the ages of 25 to 45. He had severe opioid addiction. Current consumption is not known. He has experimented with LSD and mushrooms. He Marijuana abuse. Past Medical history: Brutons disease, Polio s/p multiple corrective surgeries, recurrent hemorrhoids. Family History of Psychiatric Disorder: The patients paternal cousin committed suicide. Social History and Family History: The patient was born and raised in [place], [place]. He grew-up with two siblings. He finished HS. 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 Allergies: Sulfa Objective: MSE: Alert and attentive. Orientation times three Dressed and Groomed: Appropriately. Pleasant and cooperative. Later in the session, he became irritable and verbally aggressive. Psychomotor Activity: Increased. Speech: Normal in tone, quality, and quantity. Mood: Angry and irritable Affect: Intense and agitated. SI or HI: None. Perceptual disturbance: None. Thought Content: The patient has mild paranoid delusions. No other delusional thinking noted. Thought Process: Normal. Cognition: Intact Judgment and Insight: Poor. AIMS: Normal Labs: Available labs reviewed. Diagnosis: Major Depressive disorder, severe with paranoia Plan and Recommendations: Continue current Medications. Monitor MS and side effects of medications and a djust medications accordingly. Provide supportive psychotherapy and psychoeducation. The patient provided psychoeducation. Te patient provided with substance abuse counselling and advised to attend AA/NA Smoke cessation therapy. The patient to attend [facility]. EKG, Medication Consent with explanation of risk/benefits and side effects: Explained and obtained.
--- NOTE | 2024-05-23 14:41 | P.PN ---
Progress Note - Text Progress Note Date: 05/23/24 Follow-up Mediation Review Chief Complaint: I am better than yesterday. Subjective: The patient noted being better and stated that the medications are helping him. He reported no side effects. He wanted me to get ventilation in the office and get rid of the mold. He noted that he has a friend, who he can ask to improve the office. He talked about different subjects in a very rapid manner. It was very hard to understand what he was talking about. He reported no side effects. He is compliant with medications. The patient has been attending the groups. The participation is good. The interaction with staff and peers is good. The patient is compliant with treatment recommendations. Leading questions: The patient admitted to Depression and Anxiety. Denied SI or HI. Admitted to paranoia. He a/v hallucinations. Sleep and Appetite: Fair. Change in family/ living/job/financial/daily routine: No change. Change in medical condition: No change. Change in medications: Increased Risperdal to 1 mg hs. Side effects from Medications: None. Allergies: No change. Objective- MSE: Alert and attentive. Orientation times three. Dressed and Groomed: Appropriately. Pleasant and cooperative. Psychomotor Activity: Increased. Speech: Normal in tone, quality, hyperverbal, rapid. Mood: I am good. Affect: Intense, anxious, labile SI or HI: None. Perceptual disturbance: None. Thought Content: Paranoid and grandiose delusions noted. No other delusional thinking noted. Thought Process: Tangential, flight of ideas, loos associations, push of speech. Cognition: Intact Judgment and Insight: Poor AIMS: Normal. Labs: Labs reviewed Diagnosis: No change. Plan and Recommendations: Continue current Medications. Monitor MS and side effects of medications and adjust medications accordingly. Provide supportive psychotherapy. The patient provided psychoeducation and advised The patient provided Substance abuse counseling. Smoke cessation therapy. The patient to attend garcia activities. Medication Consent with explanation of risk/benefits and side effects: Explained and obtained.
[2024-05-23] MEDS: DIVALPROEX SPRINKLE 125 MG CAP.SPRINK PO SCH (16:41)
[2024-05-23] MEDS: risperiDONE 1 MG TAB PO SCH (22:34)
[2024-05-24] MEDS ORDERED: DIVALPROEX 250 MG TABLET.DR PO ONE (11:58)
[2024-05-24] MEDS: DIVALPROEX ER 250 MG TAB.ER.24H PO SCH (12:00)
[2024-05-24] MEDS ORDERED: DIVALPROEX ER 250 MG TAB.ER.24H PO ONE (12:00)
--- NOTE | 2024-05-24 13:49 | P.PN ---
Progress Note - Text Progress Note Date: 05/24/24 Follow-up Mediation Review Chief Complaint: I did not take my morning medication. Subjective: The patient wanted me to talk to his doctor for his medications. He stated that he did fine with Cymbalta. He is fine taking Risperdal but refuse Depakote this morning. After some encouragement he did take Depakote. He was informed of the increase in the dose of Depakote and risperdal. He was talking about different topic today. He wanted me to call his uncle. An attempt was made. There was no response. He talked rapidly and bounced from subjects to subjects. He also walked to my office from the hallway. He reported no side effects. He is compliant with medications. The patient has been attending the groups. The participation is good. The interaction with staff and peers is good. The patient is compliant with treatment recommendations. Leading questions: The patient admitted to Depression and Anxiety. Denied SI or HI. Admitted to paranoia. He a/v hallucinations. Sleep and Appetite: Fair. Change in family/ living/job/financial/daily routine: No change. Change in medical condition: No change. Change in medications: Increased Risperdal to 2 mg po qhs. Side effects from Medications: None. Allergies: No change. Objective- MSE: Alert and attentive. Orientation times three. Dressed and Groomed: Appropriately. Pleasant and cooperative. Psychomotor Activity: Increased. Speech: Normal in tone, quality, hyperverbal, rapid. Mood: I am good. Affect: Intense, anxious, labile SI or HI: None. Perceptual disturbance: None. Thought Content: Paranoid and grandiose delusions noted. No other delusional thinking noted. Thought Process: Tangential, flight of ideas, loos associations, push of speech. Cognition: Intact Judgment and Insight: Poor AIMS: Normal. Labs: Labs reviewed Diagnosis: No change. Plan and Recommendations: Continue current Medications. Monitor MS and side effects of medications and adjust medications accordingly. Provide supportive psychotherapy. The patient provided psychoeducation and advised The patient provided Substance abuse counseling. Smoke cessation therapy. The patient to attend garcia activities. Medication Consent with explanation of risk/benefits and side effects: Explained and obtained.
[2024-05-24] MEDS: IBUPROFEN 600 MG TAB PO PRN (16:56)
[2024-05-24] MEDS: risperiDONE 1 MG TAB PO SCH (20:30)
[2024-05-25] MEDS: NICOTINE GUM (POLACRILEX) 2 MG GUM BUCCAL PRN (15:18)
--- NOTE | 2024-05-25 17:43 | P.PN ---
Progress Note - Text Progress Note Date: 05/25/24 Interval history: Patient was seen several times on the hallway and asked how much time he to be able to have to speak with me today. He was agreeable to speak with literary writer. During the visit he presented several handwritten notes regarding ADA concerns and family concerns. 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 He described his mood as "good" and shared several tangential stories that were somewhat difficult to follow. He was later seen in the wei and requested a switch from the nicotine patch and nicotine gum as he has had a decrease and to drink consumption prior to coming to the hospital. He also shared information about his past medical history and the need for a specialized infusion which nursing is working to coordinate. At this time patient denies any suicidal or homicidal ideations intent or plan. Denies any auditory or visual hallucinations, stated "no way". Patient denies any side effects from the medications and has been compliant with meds. Mental status exam: General Appearance: Patient appears to be stated age is alert, directable, and cooperative. Behavior: No agitated behavior. Patient is calm and directable. Seated in a wheelchair on the unit. Speech: Patient's speech is fluent and nonpressured. Mood/Affect: Mood is euthymic though slightly irritable, affect is congruent and bright overall. Suicidality/Homicidality: Patient denies having any suicidal or homicidal ideation intent or plan. Perceptions: Patient denies any auditory or visual hallucinations. Though content/process: There is no evidence of any delusional thought content and thought process is linear and goal-directed. Memory and concentration: AOX3, grossly intact for the purposes of this session Judgment and insight: fair Assessment/Plan: Continue with current diagnosis: MDD with psychotic features. Suspect that patient's personality dynamics may be contributory to presentation. Patient continues to meet criteria for inpatient psychiatric admission for symptom stabilization and safety. Patient will be maintained on current psychotropic medication regimen. Monitor for medication compliance and for any psychotropic medication side effects. Will continue to monitor ongoing response to treatment. Encouraged participation in milieu.
[2024-05-25] MEDS: SYMBICORT 80-4.5 MCG INHALER INHALATION SCH (22:31)
--- NOTE | 2024-05-26 19:06 | P.PN ---
Progress Note - Text Progress Note Date: 05/26/24 Interval history: Patient was seen in the hallway and was generally pleasant and engaging with other patients. When asked about his mood he explained "it was good. I will get ready for work." He has found it helpful to consider his interaction with other patients as his "work" while he is here at the hospital. Additionally he went on to say "I found out I got a girlfriend" but did not provide any further context for these comments. He reports his sleep and appetite are both stable. He has noticed some weight gain which is something he is happy about. He asked about receiving his specialized infusion. Explained that this is currently scheduled for Monday. At this time patient denies any suicidal or homicidal ideations, intent, or plan. Denies any auditory or visual hallucinations, stated "no way". Patient denies any side effects from the medications and has been compliant with meds. Mental status exam: General Appearance: Patient appears to be stated age is alert, directable, and cooperative. Behavior: No agitated behavior. Patient is calm and reasonably directable. Se ated in a wheelchair on the unit. Speech: Patient's speech is fluent and nonpressured. Mood/Affect: Mood is euthymic though slightly irritable. Quickly becomes frustrated. Suicidality/Homicidality: Patient denies having any suicidal or homicidal ideation intent or plan. Perceptions: Patient denies any auditory or visual hallucinations. Though content/process: There is no evidence of any delusional thought content and thought process is linear and goal-directed. Somewhat grandiose. Memory and concentration: AOX3, grossly intact for the purposes of this session Judgment and insight: fair Assessment/Plan: Continue with current diagnosis: MDD with psychotic features. Suspect that patient's personality dynamics may be contributory to presentation. Patient continues to meet criteria for inpatient psychiatric admission for symptom stabilization and safety. Patient will be maintained on current psychotropic medication regimen. Monitor for medication compliance and for any psychotropic medication side effects. Will continue to monitor ongoing response to treatment. Encouraged participation in milieu.
--- NOTE | 2024-05-27 12:06 | P.PN ---
Progress Note - Text Progress Note Date: 05/27/24 Interval History: Patient was seen in the hallway and was directable and agreeable to speak with show card writer in the office. He described his mood as "upbeat". He then went on to sit on the large table in the office as he said this is where he usually sits to talk with the doctor. When asked about the circumstances leading up to his hospitalization he said "I have all the evidence". He went on to have somewhat of a monologue and did not provide additional context for this show card writer. He continues to sleep well and his appetite is improved which has resulted in some weight gain which she is happy about. He shared that he does not intend to take his Hizentra here in the hospital and would rather wait until he is home because he feels it is a condenser cleaner environment. At this time patient denies any suicidal or homical ideations, intent or plan. Patient denies any auditory, visual hallucinations and denies any paranoia or delusions. Patient denies any side effects from the medications and has been compliant with meds. Mental status exam: General Appearance: Patient appears to be stated age is alert, directable, and cooperative. Behavior: No agitated behavior. Patient is calm and reasonably directable. Speech: Patient's speech is fluent and nonpressured. Mood/Affect: Mood is euthymic though slightly irritable. Suicidality/Homicidality: Patient denies having any suicidal or homicidal ideation intent or plan. Perceptions: Patient denies any auditory or visual hallucinations. Though content/process: There is no evidence of any delusional thought content and thought process is tangential. Grandiose. Memory and concentration: AOX3, grossly intact for the purposes of this session Judgment and insight: fair Assessment: - Major depressive disorder with psychotic features - Opioid use disorder, per review of records - Consider narcissistic traits Plan: - Patient continues to meet criteria for inpatient psychiatric admission for symptom stabilization and safety. - Medications: - Continue divalproex 250 mg BID - Continue duloxetine 60 mg daily - Continue Risperidone 2 mg QHS - Monitor for medication compliance and for any psychotropic medication side effects. - Will continue to monitor ongoing response to treatment. - Encouraged participation in milieu. - PRNs available as needed for severe agitation or aggression. - SW to participate in discharge planning.
[2024-05-28 07:19] VITALS: TEMP 98.3
[2024-05-28] MEDS: risperiDONE 1 MG TAB PO SCH (23:35)
[2024-05-28] MEDS: DIVALPROEX ER 250 MG TAB.ER.24H PO SCH (23:35)
[2024-05-29 08:53] VITALS: BP 131/83; PULSE 93; RESP 20
--- NOTE | 2024-05-29 12:26 | P.PN ---
Progress Note - Text Progress Note Date: 05/28/24 Subjective: Follow-up Mediation Review Chief Complaint: I am taking my medications. Subjective: The patient noted that he has been doing good. He is relaxed and not getting in to anybodys business. He feels that he has improved significantly from before. The patient still somewhat hyperverbal and mildly grandiose., He reported no side effects. He is compliant with medications. The patient has been attending the groups. The participation is good. The interaction with staff and peers is good. The patient is compliant with treatment recommendations. Leading questions: The patient admitted to Depression and Anxiety. Denied SI or HI. Admitted to paranoia. No a/v hallucinations. Sleep and Appetite: Fair. Change in family/ living/job/financial/daily routine: No change. Change in medical condition: No change. Change in medications: None. Mental status exam: General Appearance: Patient appears to be stated age is alert, directable, and cooperative. Behavior: No agitated behavior. Patient is calm and reasonably directable. Speech: Patient's speech is fluent and nonpressured. Mood/Affect: Mood is euthymic though slightly irritable. Suicidality/Homicidality: Patient denies having any suicidal or homicidal ideation intent or plan. Perceptions: Patient denies any auditory or visual hallucinations. Though content/process: There is no evidence of any delusional thought content and thought process is tangential. Grandiose. Memory and concentration: AOX3, grossly intact for the purposes of this session Judgment and insight: fair Diagnosis: No change. Plan: Monitor for medication compliance and for any psychotropic medication side effects. Will continue to monitor ongoing response to treatment. Encouraged participation in milieu. Supportive therapy
--- NOTE | 2024-05-29 13:08 | P.DS ---
Providers Date of admission: 05/21/24 20:55 Expected date of discharge: 05/29/24 Attending physician: Booker Chakraborty MD Consults: 05/21/24 20:56 Consult Physician Routine Consulting Provider: Lacey Nuñez Consult Reason/Comments: H & P Do you want consulting provider notified?: Yes Primary care physician: Lacey Nuñez - Discharge Diagnosis(es) (1) Major depressive disorder, recurrent, severe with psychotic features Current Visit: Yes Status: Acute Priority: High Hospital Course: Discharge Summary HPI: Identifying Data: Mr. Nguyen is 49 years old, single, wm, who lives in [place], [place] in a house by himself. Chief Complaint: Lot of stress for 6 weeks. History of Psychiatric Illness- The patient noted that he came to the hospital because his family and friends asked him. The patient noted he was noted to be aggressive by expressing anger, irritability, snapping, fluctuating sleep, paranoia, hypervigilant, feared being shot, checking vehicle for rust in the bottom because that means he is being followed, neglecting personal care. He denied being worthless, hopeless suicidal or homicidal. He also believed that [place] people were going to hurt his family. The patient noted that he has never had this kind of experience in the past. The patient has never been hospitalized in the past for psychiatric reason. He has no h/o SI or HI in the past. The patient has last contact with a psychiatrist in 2022. He is taking Cymbalta and Xanax prescribed to him by his PCP. He has been compliant with his medications. Past Psychiatric History: The patient has been under psychiatric treatment since age 7. He has been under psychiatric treatment off and on since then. Past Medication History: The patient does not know. Leading questions: The patient denied Depression and Anxiety. Denied SI or HI. Admitted to paranoia. Denied hearing voices or seeing things. Drugs and alcohol history: The patient drank heavy between the ages of 20 to 35. He used cocaine between the ages of 25 to 45. He had severe opioid addiction. Current consumption is not known. He has experimented with LSD and mushrooms. He Marijuana abuse. Past Medical history: Brutons disease, Polio s/p multiple corrective surgeries, recurrent hemorrhoids. Hospital Course: After admission, the patient was involved in pharmacotherapy, garcia milieu, and individual psychodynamic psychotherapy. The patient was started on Risperdal and Depakote. The dose was titrated to obtain the desire effects. The patient tolerated medications well without any side effects. The patient was also involved in garcia activities. The patient attended the groups and participated well. The patient interacted with peers and staff well. The patient slowly started showing improvement. The hospital course was uneventful. The patient symptoms of depression, suicidal and homicidal ideations abated. The psychosis improved. The patient was stable to be discharged to out-patient care. The patient did not have any guns or weapons in possession at home. MSE: Alert and attentive. Orientation times three Dressed and Groomed: Appropriately. Pleasant and cooperative. Later in the session, he became irritable and verbally aggressive. Psychomotor Activity: Increased. Speech: Normal in tone, quality, and quantity. Mood: Angry and irritable Affect: Intense and agitated. SI or HI: None. Perceptual disturbance: None. Thought Content: The patient has mild paranoid delusions. No other delusional thinking noted. Thought Process: Normal. Cognition: Intact Judgment and Insight: Poor. . Diagnosis: Major Depressive disorder, severe with paranoia Plan: The patient to be discharged today. The patient has attained good improvement since admission. He is stable to be followed as an outpatient. The patient is not suicidal or Homicidal. He does not pose any harm to self or others. The patient remains at a greater risk of self-harm or harm to others than general population on a chronic basis due to psychiatric illness and substance abuse. The patient will continue taking following medication post discharge. The importance of medication compliance and maintaining regular appointments at psychiatric out-pt and PCP clinic was explained and encouraged. The understood and agreed with the recommendations. farmworker bulbs to arrange for and conduct family meeting to ensure safety upon discharge and answer any questions. The social insurance specialist to arrange for patients follow-up appointments at [facility] for psychiatric care along with follow-up with PCP. The patient provided psychoeducation. Advised to call 911 or go to nearest ED or call this hospital in case of acute worsening of symptomatology, severe side effects or having suicidal, homicidal thoughts and feeling unsafe at home. Patient Condition at Discharge: Stable Plan - Discharge Summary Discharge Rx Participant: No New Discharge Prescriptions: New Hizentra 12,000 mg SQ Q7D risperiDONE [RisperDAL] 3 mg PO HS 15 Days #15 tab Divalproex ER [Depakote ER] 250 mg PO TID 15 Days #45 tab Continue atenoloL [Tenormin] 50 mg PO DAILY HYDROcodone/APAP 10-325MG [Baker 10-325] 1 tab PO QID PRN PRN Reason: Pain ALPRAZolam [Xanax] 0.25 mg PO TID PRN PRN Reason: Anxiety Albuterol Sulfate [Albuterol Sulfate Hfa] 1 - 2 puff PO RT-Q6H PRN PRN Reason: Shortness Of Breath Pregabalin [Lyrica] 75 mg PO BID Fluticasone Propion/Salmeterol [Advair 250-50 Diskus] 1 puff PO RT-BID DULoxetine HCL [Cymbalta] 60 mg PO DAILY Sildenafil Citrate [Viagra] 50 mg PO DAILY PRN PRN Reason: SEXUAL ACTIVITY Discharge Medication List ALPRAZolam [Xanax] 0.25 mg PO TID PRN 05/21/24 [History] Albuterol Sulfate [Albuterol Sulfate Hfa] 1 - 2 puff PO RT-Q6H PRN 05/21/24 [History] DULoxetine HCL [Cymbalta] 60 mg PO DAILY 05/21/24 [History] Fluticasone Propion/Salmeterol [Advair 250-50 Diskus] 1 puff PO RT-BID 05/21/24 [History] HYDROcodone/APAP 10-325MG [Baker 10-325] 1 tab PO QID PRN 05/21/24 [History] Pregabalin [Lyrica] 75 mg PO BID 05/21/24 [History] Sildenafil Citrate [Viagra] 50 mg PO DAILY PRN 05/21/24 [History] atenoloL [Tenormin] 50 mg PO DAILY 05/21/24 [History] Divalproex ER [Depakote ER] 250 mg PO TID 15 Days #45 tab 05/29/24 [Rx] Hizentra 12,000 mg SQ Q7D 05/29/24 [Rx] risperiDONE [RisperDAL] 3 mg PO HS 15 Days #15 tab 05/29/24 [Rx] Follow up Appointment(s)/Referral(s): [facility] [Outside] - 06/03/24 3:30 pm (06/03/2024 3:30PM - 4:30PM PRADEEP GUTIERREZ 06/04/2024 2:30PM - 3:30PM PABLO ARRINGTON ) Lacey Nuñez MD [Primary Care Provider] - 1-2 days
== END 2024-05-29 14:55 | disposition home or self-care (01) | DRG 885 ==
LOC: EC 09:54 → 3MHU 20:55
PROVIDERS: ADMIT Psychiatry & Neurology Psychiatry; ATTEND Psychiatry & Neurology Psychiatry
DX: F33.3 Major depressive disorder, recurrent, severe with psychotic symptoms (principal); E44.0 Moderate protein-calorie malnutrition; Z68.1 Body mass index [BMI] 19.9 or less, adult; D80.0 Hereditary hypogammaglobulinemia; F12.10 Cannabis abuse, uncomplicated; F11.21 Opioid dependence, in remission; I10 Essential (primary) hypertension; F17.220 Nicotine dependence, chewing tobacco, uncomplicated; F41.9 Anxiety disorder, unspecified; Z79.899 Other long term (current) drug therapy; Z86.12 Personal history of poliomyelitis; Z88.2 Allergy status to sulfonamides
CPT/HCPCS: 36415; 80053; 80061; 80306; 81003; 83036; 84443; 85025; 87635; 87636; 99285